=== PATIENT | male | born 1960 | race Asian ===

== ENCOUNTER 2019-01-26 07:14 | Day surgery (SDC) | payer OTHER ==
[2019-01-26 09:18] LABS: POTASSIUM 4.8 mmol/L (3.6-5.2)
[2019-01-26 09:27] LABS: PLATELET COUNT 262 K/uL (142-355)
[2019-01-26 09:59] LABS: PARTIAL THROMBOPLASTIN TIME 23.6 SECONDS (24.5-33.6)
== END 2019-01-26 11:40 | disposition home or self-care (01) ==
LOC: OR 07:14
PROVIDERS: Pain Medicine Interventional Pain Medicine
PROC: 00HU3MZ Insertion of Neurostimulator Lead into Spinal Canal, Percutaneous Approach (ICD-10-PCS; principal; 2019-01-26)
PROC: 4B01XVZ Measurement of Peripheral Nervous Stimulator, External Approach (ICD-10-PCS; 2019-01-26)
DX: M54.16 Radiculopathy, lumbar region (principal); Z79.891 Long term (current) use of opiate analgesic; Z51.81 Encounter for therapeutic drug level monitoring
CPT/HCPCS: 80053; 85027; 85610; 85730; 93005; C1897; J0690; J2001; J2250; J2405; J2704; J3010; J3490

== ENCOUNTER 2020-01-25 07:37 | Outpatient (CLI) | payer OTHER ==
[~2020-01-25] VITALS: Ht 175.3 cm; Wt 86.6 kg
== END 2020-01-25 19:37 | disposition home or self-care (01) ==
LOC: NM 07:37
DX: I25.10 Atherosclerotic heart disease of native coronary artery without angina pectoris (principal)
CPT/HCPCS: A9500; J2785